=== PATIENT | male | born 1950 | race Caucasian/White ===

== ENCOUNTER → 2020-03-08 | Outpatient (CLI) | payer MEDICARE ==
[~2020-03-08] MED LIST: ATENOLOL50 MG PO; LISINOPRIL/HCTZ1 TA3 PO; ZOCOR40 MG PO
[2020-03-08 09:08] LABS: BASO # 0.1 10*3/uL (0.0-0.1); EOS # 0.1 10*3/uL (0.0-0.4); EOS % 1.3 % (1.0-4.0); HEMATOCRIT 45.4 % (42.0-52.0); LYMPH # 1.9 10*3/uL (1.3-4.4); LYMPH % 30.7 % (27.0-41.0); MEAN CELL VOLUME 98.5 fl (80.0-94.0); MEAN CORPUSCULAR HGB 32.8 pg (27.0-31.0); MEAN CORPUSCULAR HGB CONC 33.3 g/dl (33.0-37.0); MEAN PLATELET VOLUME 9.6 fl (9.6-12.3); MONO # 0.7 10*3/uL (0.1-1.0); MONO % 11.1 % (3.0-9.0); NEUT # 3.4 10*3/uL (2.3-7.9); NEUT % 55.6 % (47.0-73.0); PLATELET COUNT AUTOMATED 230 10*3/uL (130-400); RED BLOOD COUNT 4.61 10*6/uL (4.50-5.90); RED CELL DISTRI WIDTH 13.1 % (0-14.5)
[2020-03-08 09:31] LABS: ALBUMIN 3.7 gm/dl (3.1-4.5); BUN 14 mg/dl (7-24); CHLORIDE 110 mmol/L (98-107); CHOLESTEROL 176 mg/dL (<200); CREATININE 0.95 mg/dL (0.70-1.30); POTASSIUM 4.3 mmol/L (3.5-5.1); SGOT/AST 17 IU/L (3-35); SGPT/ALT 30 U/L (12-78); SODIUM 140 mmol/L (136-145); TOTAL PROTEIN 7.3 gm/dL (6.4-8.2); TRIGLYCERIDES 57 mg/dl (<150); VLDL CHOLESTEROL 11 mg/dL (6-40)
[2020-03-08 09:37] LABS: ALKALINE PHOSPHATASE 35 U/L (45-117); FREE T4 0.87 ng/dl (0.76-1.46); HDL CHOLESTEROL 57 mg/dl (40-60); LDL CHOLESTEROL 108 mg/dL (9-159); THYROID STIM HORMONE (HS) 0.704 uIU/ml (0.358-4.75)
[2020-03-08 11:12] LABS: VITAMIN D, 25-HYDROXY 49.8 ng/mL (30-100)
== END | disposition home or self-care (01) ==
LOC: LAB 08:44
PROVIDERS: Internal Medicine
DX: Z12.5 Encounter for screening for malignant neoplasm of prostate (principal); I10 Essential (primary) hypertension; E78.2 Mixed hyperlipidemia; N40.1 Benign prostatic hyperplasia with lower urinary tract symptoms; R79.82 Elevated C-reactive protein (CRP); R53.81 Other malaise; E55.9 Vitamin D deficiency, unspecified; M06.9 Rheumatoid arthritis, unspecified; R79.89 Other specified abnormal findings of blood chemistry

== ENCOUNTER → 2020-05-08 | Outpatient (CLI) | payer MEDICARE | END | disposition home or self-care (01) | LOC: RAD 09:46 | PROVIDERS: ATTEND Internal Medicine | DX: J84.10 Pulmonary fibrosis, unspecified (principal) ==

== ENCOUNTER → 2021-12-12 | Outpatient (CLI) | payer MEDICARE, OTHER | END | disposition home or self-care (01) | LOC: RAD 09:28 | PROVIDERS: ATTEND Internal Medicine | DX: J43.9 Emphysema, unspecified (principal); J84.10 Pulmonary fibrosis, unspecified ==

== ENCOUNTER → 2022-12-24 | Outpatient (CLI) | payer MEDICARE, OTHER | END | disposition home or self-care (01) | LOC: ORTHO 00:56 | PROVIDERS: ATTEND Orthopaedic Surgery | DX: M19.032 Primary osteoarthritis, left wrist (principal) ==

== ENCOUNTER → 2024-05-30 | Outpatient (CLI) | payer OTHER | END | disposition home or self-care (01) | LOC: RAD 08:20 | PROVIDERS: ATTEND Nurse Practitioner Family | DX: R06.2 Wheezing (principal); R07.9 Chest pain, unspecified ==